=== PATIENT | female | born 1995 | race Caucasian/White ===

== ENCOUNTER 2018-10-08 04:28 | Emergency (ER) | payer BC ==
[2018-10-08] MEDS ORDERED: NS 0.9% 1000 ML* 1,000 ML IV ONE (04:41)
[2018-10-08 05:10] LABS: ABS Basophils 0.1 10^3/ul (0-0.2); ABS Eosinophils 0.2 10^3/ul (0-0.6); ABS Lymphocytes 2.8 10^3/ul (1.0-4.8); ABS Monocytes 0.6 10^3/ul (0-0.8); ABS Neutrophils 3.4 10^3/ul (1.5-7.7); ABS Nucleated RBC 0 10^3/ul; Eosinophil % 2.2 %; Hematocrit 39 % (35-47); Hemoglobin 13.3 g/dl (12.0-16.0); Mean Corpuscular HGB Conc 34 g/dl (31-36); Mean Corpuscular Hemoglobin 30 pg (27-31); Mean Corpuscular Volume 89 fL (80-97); Nucleated Red Blood Cells % 0.1; Platelet Count 217 10^3/ul (150-450); Red Blood Count 4.37 10^6/ul (4.00-5.40); Red Cell Distribution Width 13 % (10.5-15); White Blood Count 7.1 10^3/ul (3.5-10.8)
--- NOTE | 2018-10-08 05:10 | ED ---
Abdominal Pain/Female - HPI Summary HPI Summary: A 23 y/o female presents to the ED c/o abdominal pain. Currently, the patient is still experiencing abdominal pain reaching 4/10 in severity. In the ED room, the patient has a pulse of 72 BPM, O2 saturation of 100%, and blood pressure of 142/88. As per triage, "Patient reports upper abdominal pain after eating, shakiness and generally feel abnormal". According to the patient, she is generally not feeling week. She stated that she felt worse after she ate and has been feeling "not well" for the past couple weeks. Some symptoms include lightheadedness and dizziness. She denies any vomiting, CP, SOB, diarrhea, or constipation. She denies any ETOH, recreational drugs, or smoking. PMHx of surgery on foot, denies appendectomy. - History of Current Complaint Chief Complaint: EDAbdPain Stated Complaint: GENERAL Time Seen by Provider: 10/08/18 04:35 Hx Obtained From: Patient Onset/Duration: Sudden Onset, Lasting Weeks, Still Present Timing: Constant Severity Initially: Moderate Severity Currently: Moderate Pain Intensity: 4 Pain Scale Used: 0-10 Numeric Location: Diffuse Radiates: No Aggravating Factor(s): Food Alleviating Factor(s): Nothing Associated Signs and Symptoms: Positive: Negative Allergies/Adverse Reactions: Allergies Allergy/AdvReac Type Severity Reaction Status Date / Time Penicillins Allergy Rash Verified 10/08/18 04:31 PMH/Surg Hx/FS Hx/Imm Hx Endocrine/Hematology History: Denies: Hx Diabetes Cardiovascular History: Denies: Hx Hypertension Respiratory History: Denies: Hx Asthma - Surgical History Surgery Procedure, Year, and Place: RIGHT FOOT SURGERY IN 2000, TONSILLECTOMY - Immunization History Immunizations Up to Date: Yes Infectious Disease History: No Infectious Disease History: Denies: Traveled Outside the [place] in Last 30 Days - Family History Known Family History: Positive: Hypertension - GRANDMOTHER - FATHER'S SIDE Negative: Diabetes - Social History Alcohol Use: Occasionally Substance Use Type: Reports: None Smoking Status (MU): Never Smoked Tobacco Review of Systems Positive: Other - POSITIVE: Shakiness. Negative: Fever Negative: Chest Pain Negative: Shortness Of Breath Positive: Abdominal Pain, Other - NEGATIVE: CONSTIPATION. Negative: Vomiting, Diarrhea Neurological: Other - POSITIVE: DIZZINESS AND LIGHTHEADEDNESS All Other Systems Reviewed And Are Negative: Yes Physical Exam - Summary Physical Exam Summary: Appearance: Well appearing, no pain distress Skin: warm, dry, reflects adequate perfusion Head/face: normal Eyes: EOMI, DAYANARA ENT: normal Neck: supple, non-tender Respiratory: CTA, breath sounds present Cardiovascular: RRR, pulses symmetrical Abdomen: Tenderness in umbilical region, soft Musculoskeletal: normal, strength/ROM intact Neuro: normal, sensory motor intact, A&Ox3 Triage Information Reviewed: Yes Vital Signs On Initial Exam: Initial Vitals Temp Pulse Resp BP Pulse Ox 98.2 F 74 16 118/77 98 10/08/18 04:30 10/08/18 04:30 10/08/18 04:30 10/08/18 04:30 10/08/18 04:30 Vital Signs Reviewed: Yes Diagnostics - Vital Signs Vital Signs Temp Pulse Resp BP Pulse Ox 10/08/18 04:41 117/79 10/08/18 04:40 71 100 10/08/18 04:38 72 142/88 99 10/08/18 04:30 98.2 F 74 16 118/77 98 - Laboratory Result Diagrams: 10/08/18 05:02 10/08/18 05:02 Lab Statement: Any lab studies that have been ordered have been reviewed, and results considered in the medical decision making process. Re-Evaluation - Re-Evaluation First Eval Re-Evaluation Time: 08:30 Change: Improved Comment: Patient is feeling better. No N/V. Abdominal Pain Fem Course/Dx - Course Course Of Treatment: A 23 y/o female presents to the ED c/o abdominal pain. Currently, the patient is still experiencing abdominal pain reaching 4/10 in severity. In the ED room, the patient has a pulse of 72 BPM, O2 saturation of 100%, and blood pressure of 142/88. As per triage, "Patient reports upper abdominal pain after eating, shakiness and generally feel abnormal". According to the patient, she is generally not feeling week. She stated that she felt worse after she ate and has been feeling "not well" for the past couple weeks. Some symptoms include lightheadedness and dizziness. She denies any vomiting, CP , SOB, diarrhea, or constipation. She denies any ETOH, recreational drugs, or smoking. PMHx of surgery on foot, denies appendectomy. Physical exam revealed tenderness in umbilical region. In the ED course, the patient recieved IV fluids. PATIENT WAS SIGNED OUT TO DR. ERICKSON VIA DR. CLARKE, PENDING CAT SCAN AND LABS, DURING SHIFT CHANGE ON 10/08/2018 AT 0700. - Diagnoses Differential Diagnosis: Positive: Appendicitis, Diverticulitis, Gall Bladder Disease, Renal Colic, Urinary Tract Infection Provider Diagnoses: Abdominal pain Discharge - Sign-Out/Discharge Documenting (check all that apply): Sign-Out Patient - ORALIA Signing out patient TO: Emanuel Erickson Receiving patient FROM: Mauricio Clarke - Discharge Plan Condition: Stable Disposition: HOME Prescriptions: Pantoprazole Sodium [Protonix] 20 mg PO DAILY #30 tablet. Patient Education Materials: Gastritis (ED) Referrals: [facility] [Outside] (1-3 days) Additional Instructions: Follow up with your primary care physician in 1-3 days. RETURN TO THE EMERGENCY DEPARTMENT FOR CHANGING OR WORSENING SYMPTOMS - Billing Disposition and Condition Condition: STABLE Disposition: Home - Attestation Statements Document Initiated by Scribe: Yes Documenting Scribe: Mata Sánchez Provider For Whom Marieibe is Documenting (Include Credential): Mauricio Clarke MD Scribe Attestation: Mata Benitez, scribed for Mauricio Clarke MD on 10/08/18 at 2128. Scribe Documentation Reviewed: Yes Provider Attestation: The documentation as recorded by the Mata martinez accurately reflects the service I personally performed and the decisions made by me, Mauricio Clarke MD Status of Scribe Document: Viewed
[2018-10-08 05:19] LABS: INR 1.06 (0.77-1.02)
[2018-10-08 05:22] LABS: Urine Appearance Clear; Urine Blood Negative (Negative); Urine Color Yellow; Urine Ketones Negative (Negative); Urine Protein Negative (Negative); Urine Specific Gravity 1.016 (1.010-1.030); Urine Urobilinogen Negative (Negative)
[2018-10-08 05:31] LABS: EGFR Non-African American 101.3 (>60)
[2018-10-08] MEDS ORDERED: Iohexol 300* (CONTRAST) 10 ML SDV IV ONE (07:02)
--- NOTE | 2018-10-08 07:55 | ED ---
Progress - Progress Note Progress Note: Patient was signed out from Dr. Hidalgo to Dr. Erickson pending CT Abdomen/Pelvis during shift change at 07:00 09/28/18. CT abdomen/pelvis impression: NORMAL APPENDIX. SPONDYLOLYSIS WITH SPONDYLOLISTHESIS AT L5-S1. ED physician has reviewed this imaging report. Re-Evaluation - Re-Evaluation First Eval Re-Evaluation Time: 08:30 Change: Improved Comment: Patient is feeling better. No N/V. Course/Dx - Course Course Of Treatment: Patient was signed out from Dr. Hidalgo to Dr. Erickson pending CT Abdomen/Pelvis during shift change at 07:00 09/28/18. Her abdomen/ pelvis CT impression was: NORMAL APPENDIX. SPONDYLOLYSIS WITH SPONDYLOLISTHESIS AT L5-S1. The patient will be discharged. I discussed results with patient and she reports feeling better. She is hemodynamically stable and safe for discharge. Strict return precautions given and she will otherwise follow up with her PCP. - Diagnoses Provider Diagnoses: Abdominal pain Discharge - Sign-Out/Discharge Documenting (check all that apply): Patient Departure - DC - Discharge Plan Condition: Stable Disposition: HOME Prescriptions: Pantoprazole Sodium [Protonix] 20 mg PO DAILY #30 tablet. Patient Education Materials: Gastritis (ED) Referrals: [facility] [Outside] (1-3 days) Additional Instructions: Follow up with your primary care physician in 1-3 days. RETURN TO THE EMERGENCY DEPARTMENT FOR CHANGING OR WORSENING SYMPTOMS - Billing Disposition and Condition Condition: STABLE Disposition: Home - Attestation Statements Document Initiated by Scribe: Yes Documenting Scribe: Antoni Cage Provider For Whom Manny is Documenting (Include Credential): Emanuel Erickson MD Scribe Attestation: IAntoni, scribed for Emanuel Erickson MD on 10/10/18 at 0244. Scribe Documentation Reviewed: Yes Provider Attestation: The documentation as recorded by the Antoni martinez accurately reflects the service I personally performed and the decisions made by me, Patrice Erickson MD Status of Scribe Document: Viewed
[2018-10-08 08:45] VITALS: BP 107/70
== END 2018-10-08 08:45 | disposition home or self-care (01) ==
LOC: ED 04:28
DX: R10.10 Upper abdominal pain, unspecified (principal); M43.17 Spondylolisthesis, lumbosacral region
CPT/HCPCS: 36415; 74177; 80053; 81003; 83690; 84702; 85025; 85610; 85730; 96361; 96374; 99283; Q9967